=== PATIENT | male | born 1960 | race African-American/Black ===

== ENCOUNTER 2019-12-09 16:58 | Emergency (ER) | payer OTHER ==
[~2019-12-09] VITALS: Ht 167.6 cm; Wt 66.3 kg
[2019-12-09 17:03] VITALS: BP 142/72
[2019-12-09] MEDS ORDERED: CYCL5TAB PO (17:51)
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
== END 2019-12-09 18:18 | disposition home or self-care (01) ==
LOC: ER 16:58
DX: S16.1XXA Strain of muscle, fascia and tendon at neck level, initial encounter (principal); I10 Essential (primary) hypertension; F31.9 Bipolar disorder, unspecified; G89.29 Other chronic pain; Z87.891 Personal history of nicotine dependence; Z98.890 Other specified postprocedural states; V46.4XXA Person boarding or alighting a car injured in collision with other nonmotor vehicle, initial encounter; Y92.488 Other paved roadways as the place of occurrence of the external cause; Y93.89 Activity, other specified; Y99.8 Other external cause status
CPT/HCPCS: 99283

== ENCOUNTER 2021-10-27 19:29 | Emergency (ER) | payer OTHER ==
[~2021-10-27] VITALS: Ht 177.8 cm; Wt 65.0 kg
[~2021-10-27 19:29] MED LIST: CYCL5TAB PO
[2021-10-27 19:35] VITALS: BP 170/78
[2021-10-27] MEDS ORDERED: IPRATRPIUM/ALBUTEROL 0.5/2.5MG 3 ML NEBU. NEB ONE (20:00)
--- NOTE | 2021-10-27 20:06 | PHYS DOC ---
Past Medical History Past Medical History: Bipolar, Hypertension, Other Additional Past Medical Histor: CHRONIC NECK PAIN Past Surgical History: Other Additional Past Surgical Histo: NECK/SPINAL Smoking Status: Former Smoker Alcohol Use: None Adult General Chief Complaint Chief Complaint: FLU SYMPTOM HPI HPI The patient is a 60-year-old male with a history of hypertension, h yperlipidemia, BPH and a remote history of smoking. He presents for evaluation of a cough with some associated mild shortness of breath which had onset about 1 week ago. Patient states symptoms started with nasal congestion, rhinorrhea and a mild dry cough. Nasal congestion and rhinorrhea have largely resolved but the cough persists, has become worse and some mild shortness of breath has developed in association with the cough. Patient states he is not dyspneic at rest but with ambulation and exertion notes that he feels winded which is not normal for him. No associated fevers, nausea or vomiting, upper respiratory congestion/rhinorrhea, sore throat, chest pain of any kind, abdominal pain of any kind, flank pain, midline back pain, dysuria, hematuria, polyuria or oliguria, changes in bowel habits, pain or swelling to arms or legs. Patient is alert, pleasantly and appropriately interactive and in no acute distress with appropriate vital signs aside from elevated blood pressure upon initial evaluation here in the emergency department. He is ambulatory to an ED bed without difficulty. Review of Systems Review of Systems A 12 point review of systems was completed and was negative except where noted in HPI above Current Medications Current Medications Current Medications Medications (Trade) Dose Ordered Sig/Will Start Time Stop Time Status Last Admin Dose Admin Albuterol/ Ipratropium (Duoneb) 3 ml 1X ONCE 10/27/21 20:00 10/27/21 20:10 DC 10/27/21 20:10 3 ML Allergies Allergies Allergies Coded Allergies Type Severity Reaction Last Updated Verified No Known Drug Allergies 12/09/19 No Physical Exam Physical Exam 60-year-old male appearing nontoxic and in no acute distress. Head is normocephalic and atraumatic. Neck is supple and nontender. Oropharynx is moist. Lungs with mildly coarse breath sounds with some wheezes with forced exhalation bilaterally. There is a normal S1 and S2 without rubs or gallops and capillary refill is appropriate, less than 2 seconds globally. Abdomen is soft, nontender and nondistended. No pulsatile mass. Skin is warm and dry without cyanosis, clubbing or edema. Psychiatrically, the patient demonstrates appropriate mood and affect and is alert. Evaluation of the extremities reveals BUEs and BLEs neurovascularly intact distally with strength 5 out of 5, sensation intact light touch in all nerve distributions, radial, DP and PT pulses 2+ and equal bilaterally, capillary refill less than 2 seconds, hands and feet warm and well-perfused. No dependent peripheral edema distally. No calf tenderness or swelling bilaterally. Homans test is negative bilaterally. Current Patient Data Vital Signs Vital Signs Date Time Temp Pulse Resp B/P (MAP) Pulse Ox O2 Delivery O2 Flow Rate FiO2 10/27/21 19:35 98.2 75 18 170/78 (108) 99 Room Air 98.2 Lab Values Laboratory Tests Test 10/27/21 20:05 White Blood Count 6.3 x10^3/uL (4.0-11.0) Red Blood Count 4.89 x10^6/uL (4.30-5.70) Hemoglobin 12.6 g/dL (13.0-17.5) L Hematocrit 37.3 % (39.0-53.0) L Mean Corpuscular Volume 76 fL (79-100) L Mean Corpuscular Hemoglobin 26 pg (25-35) Mean Corpuscular Hemoglobin Concent 34 g/dL (31-37) Red Cell Distribution Width 13.1 % (11.5-14.5) Platelet Count 273 x10^3/uL (140-400) Neutrophils (%) (Auto) 46 % (31-73) Lymphocytes (%) (Auto) 40 % (24-48) Monocytes (%) (Auto) 12 % (0-9) H Eosinophils (%) (Auto) 1 % (0-3) Basophils (%) (Auto) 1 % (0-3) Neutrophils # (Auto) 2.9 x10^3/uL (1.8-7.7) Lymphocytes # (Auto) 2.5 x10^3/uL (1.0-4.8) Monocytes # (Auto) 0.8 x10^3/uL (0.0-1.1) Eosinophils # (Auto) 0.1 x10^3/uL (0.0-0.7) Basophils # (Auto) 0.1 x10^3/uL (0.0-0.2) Sodium Level 140 mmol/L (136-145) Potassium Level 3.7 mmol/L (3.5-5.1) Chloride Level 103 mmol/L (98-107) Carbon Dioxide Level 27 mmol/L (21-32) Anion Gap 10 (6-14) Blood Urea Nitrogen 15 mg/dL (8-26) Creatinine 0.9 mg/dL (0.7-1.3) Estimated GFR (Cockcroft-Gault) 104.2 BUN/Creatinine Ratio 17 (6-20) Glucose Level 138 mg/dL (70-99) H Calcium Level 8.5 mg/dL (8.5-10.1) Total Bilirubin 0.2 mg/dL (0.2-1.0) Aspartate Amino Transferase (AST) 35 U/L (15-37) Alanine Aminotransferase (ALT) 47 U/L (16-63) Alkaline Phosphatase 66 U/L (46-116) Troponin I High Sensitivity 11 ng/L (4-75) EU-Hdy-Z-Type Natriuretic Peptide 225 pg/mL (0-124) H Total Protein 7.2 g/dL (6.4-8.2) Albumin 3.5 g/dL (3.4-5.0) Albumin/Globulin Ratio 0.9 (1.0-1.7) L Laboratory Tests 10/27/21 20:05 Laboratory Tests 10/27/21 20:05 EKG EKG Sinus rhythm, rate 68, no acute ST elevation or depression, occasional PACs and PVCs, CT 148, QRS 80, QTc 443, EP interpretation. Nonischemic tracing, intervals appropriate. Radiology/Procedures Radiology/Procedures INDICATION: Reason: cough, SOA, wheezing / Spl. Instructions: / History: COMPARISON: None. FINDINGS: Single view of chest obtained. Partial visualization of fusion hardware at the lower cervical spine. Cardiac silhouette is unremarkable. No definite focal airspace consolidation. IMPRESSION: * No focal airspace consolidation or edema. Electronically signed by: Angelic Jeong MD (10/27/2021 8:18 PM) [id number] DICTATED and SIGNED BY: ANGELIC JEONG MD DATE: 10/27/212015 [] Course & Med Decision Making Course & Med Decision Making Very well-appearing 60-year-old gentleman with a remote tobacco use history and no known cardiac comorbidities presenting for evaluation of cough with some associated wheezing and shortness of breath developing in the aftermath of what sounds like a viral URI. Vital signs and clinical examination are reassuring. Patient appears well and is not conversationally dyspneic. Given wheezing and shortness of breath in a 60-year-old, will obtain labs, EKG and chest x-ray and will give an empiric DuoNeb. If work-up is reassuring, anticipate probable discharge home with medication for symptom management to follow-up closely with primary care. Patient understands and agrees. 2103: Labs and imaging are without evidence of acute process. Patient resting comfortably in no acute distress on reassessment, reports presenting symptoms are improved after a DuoNeb here in the emergency department. Will discharge home with a steroid burst, an albuterol inhaler and a course of doxycycline as empiric treatment for acute exacerbation of chronic bronchitis given smoking history. Patient understands that if he feels worse instead of better or develops other new symptoms of concern that he should return to the emergency department immediately for reevaluation. Otherwise, close follow-up with primary care is strongly advised. Dragon Disclaimer Dragon Disclaimer This electronic medical record was generated, in whole or in part, using a voice recognition dictation system. Departure Departure Impression: Primary Impression: Chronic bronchitis with acute exacerbation Disposition: 01 HOME / SELF CARE / HOMELESS Condition: IMPROVED Referrals: MARIE ERICKSON MD (PCP) Patient Instructions: Acute Bronchitis Additional Instructions: Follow-up very closely with your primary care doctor in the office in the next 2 to 4 days for a reevaluation of your symptoms and a discussion of next best steps in care. Begin taking the prednisone steroid daily for the next 5 days to improve your breathing and improve your cough. Use the albuterol inhaler every 4 hours as needed (2 puffs) for cough, wheezing and/for shortness of breath. Take the doxycycline antibiotic twice a day as prescribed for the next 10 days. Drink plenty of fluids and get plenty of rest. Return to the emergency department right away for worsening symptoms of any kind or with any other new symptoms of concern. Scripts Doxycycline Hyclate (DOXYCYCLINE HYCLATE) 100 Mg Capsule 1 CAP PO BID for 10 Days, #20 CAP Prov: NATALIE CAPONE MD 10/27/21 Albuterol Sulfate (VENTOLIN HFA INHALER) 18 Gm Hfa.aer.ad 2 PUFF INH Q4HRS for SOA/COUGH/WHEEZING for 14 Days, EACH 0 Refills Prov: NATALIE CAPONE MD 10/27/21 Prednisone (PREDNISONE) 50 Mg Tablet 1 TAB PO DAILY, #5 TAB Prov: NATALIE CAPONE MD 10/27/21 NATALIE CAPONE MD Oct 27, 2021 20:06
[2021-10-27 20:17] LABS: BASO # 0.1 x10^3/uL (0.0-0.2); BASO % 1 % (0-3); EOS # 0.1 x10^3/uL (0.0-0.7); EOS % 1 % (0-3); HEMATOCRIT 37.3 % (39.0-53.0); HEMOGLOBIN 12.6 g/dL (13.0-17.5); LYMPH # 2.5 x10^3/uL (1.0-4.8); LYMPH % 40 % (24-48); MEAN CORPUSCULAR HEMOGLOBIN 26 pg (25-35); MEAN CORPUSCULAR HGB CONC 34 g/dL (31-37); MEAN CORPUSCULAR VOLUME 76 fL (79-100); MONO # 0.8 x10^3/uL (0.0-1.1); MONO % 12 % (0-9); NEUT # 2.9 x10^3/uL (1.8-7.7); NEUT % 46 % (31-73); PLATELET COUNT 273 x10^3/uL (140-400); RED BLOOD COUNT 4.89 x10^6/uL (4.30-5.70); RED CELL DISTRIBUTION WIDTH 13.1 % (11.5-14.5); WHITE BLOOD COUNT 6.3 x10^3/uL (4.0-11.0)
--- NOTE | 2021-10-27 20:20 | RAD ---
INDICATION: Reason: cough, SOA, wheezing / Spl. Instructions: / History: COMPARISON: None. FINDINGS: Single view of chest obtained. Partial visualization of fusion hardware at the lower cervical spine. Cardiac silhouette is unremarkable. No definite focal airspace consolidation. IMPRESSION: * No focal airspace consolidation or edema. Electronically signed by: Mike Jeong MD (10/27/2021 8:18 PM) [id number]
[2021-10-27 20:33] LABS: CALCIUM 8.5 mg/dL (8.5-10.1); CREATININE 0.9 mg/dL (0.7-1.3); GFR 104.2; POTASSIUM 3.7 mmol/L (3.5-5.1)
[2021-10-27 20:39] LABS: ALBUMIN 3.5 g/dL (3.4-5.0); ALBUMIN/GLOBULIN RATIO 0.9 (1.0-1.7); TOTAL BILIRUBIN 0.2 mg/dL (0.2-1.0); TOTAL PROTEIN 7.2 g/dL (6.4-8.2)
[2021-10-27] MEDS ORDERED: VENTOLIN HFA18 GM INH (21:09)
[2021-10-27] MEDS ORDERED: PRED50TA PO (21:09)
[2021-10-27] MEDS ORDERED: DOXY100C3 PO (21:09)
== END 2021-10-27 22:23 | disposition home or self-care (01) ==
LOC: ER 19:29
DX: J44.1 Chronic obstructive pulmonary disease with (acute) exacerbation (principal); F31.9 Bipolar disorder, unspecified; I10 Essential (primary) hypertension; G89.29 Other chronic pain; Z87.891 Personal history of nicotine dependence
CPT/HCPCS: 36415; 71045; 80053; 83880; 84484; 85025; 94640; 99284